=== PATIENT | female | born 1980 | race Caucasian/White ===

== ENCOUNTER 2017-08-24 13:32 | Emergency (ER) | payer MEDICAID ==
[~2017-08-24] VITALS: Ht 160 cm; Wt 73.5 kg
[~2017-08-24 13:32] MED LIST: PNV1TAB.5 PO
[2017-08-24 13:34] VITALS: BP 124/76
== END 2017-08-24 14:55 | disposition home or self-care (01) ==
LOC: ED 14:49
DX: J32.1 Chronic frontal sinusitis (principal); J20.9 Acute bronchitis, unspecified; E11.9 Type 2 diabetes mellitus without complications; Z88.0 Allergy status to penicillin
CPT/HCPCS: 99283

== ENCOUNTER 2017-09-26 19:03 | Outpatient (CLI) | payer MEDICAID ==
[~2017-09-26] VITALS: Ht 160 cm; Wt 74.1 kg
[2017-09-26 19:31] VITALS: BP 113/66
== END 2017-09-26 21:15 | disposition home or self-care (01) ==
LOC: LDOP 19:03
PROVIDERS: ATTEND Obstetrics & Gynecology
DX: O09.523 Supervision of elderly multigravida, third trimester (principal); O26.893 Other specified pregnancy related conditions, third trimester; O99.333 Smoking (tobacco) complicating pregnancy, third trimester; R10.9 Unspecified abdominal pain; F17.200 Nicotine dependence, unspecified, uncomplicated; Z3A.28 28 weeks gestation of pregnancy
CPT/HCPCS: 59025; 76815; 81003; 87086; 99201; G0463

== ENCOUNTER 2017-11-12 11:59 | Observation (INO) | payer MEDICAID ==
[~2017-11-12] VITALS: Ht 160 cm; Wt 80.9 kg
[2017-11-12 12:59] VITALS: BP 107/65
[2017-11-12] MEDS ORDERED: ONDANSETRON 2MG/ML, 2ML ONE (13:18)
[2017-11-12] MEDS ORDERED: LACTATED RINGERS 1,000 ML IVBOLUS ONE (13:30)
[2017-11-12] MEDS ORDERED: ONDANSETRON 2MG/ML, 2ML IVPush PRN (13:30)
[2017-11-12 13:44] LABS: MICROSCOPIC INDICATED
[2017-11-12] MEDS ORDERED: LACTATED RINGERS 1,000 ML IV SCH (14:30)
[2017-11-12] MEDS ORDERED: ONDA4TAB10 PO (15:01)
== END 2017-11-12 16:00 | disposition home or self-care (01) ==
LOC: LDOP 11:59 → 2NW 14:37 → INTOOBSV 14:37 → LDIP 15:18
PROVIDERS: ADMIT Obstetrics & Gynecology; ATTEND Obstetrics & Gynecology
DX: O26.892 Other specified pregnancy related conditions, second trimester (principal); R19.7 Diarrhea, unspecified; Z3A.35 35 weeks gestation of pregnancy
CPT/HCPCS: 81001; 87086; 96374; G0378; J2405; J7120; 96361

== ENCOUNTER 2017-12-12 05:35 | Inpatient (IN) | payer MEDICAID ==
[~2017-12-12] VITALS: Ht 160 cm; Wt 81.8 kg
[~2017-12-12 05:35] MED LIST changes: +ONDA4TAB10 PO
[2017-12-12] MEDS ORDERED: LACTATED RINGERS 1,000 ML IV SCH ×3 (05:37→07:38)
[2017-12-12] MEDS ORDERED: OXYTOCIN 30U/ 0.9% NaCL 500ML 500 ML IV SCH (05:37)
[2017-12-12 05:56] VITALS: BP 120/77
[2017-12-12] MEDS ORDERED: LACTATED RINGERS 1,000 ML IVBOLUS ONE (06:00)
[2017-12-12] MEDS ORDERED: SODIUM CITRATE/CITRIC ACID 30 ML UDC PO ONE (06:00)
[2017-12-12] MEDS ORDERED: METOCLOPRAMIDE 5 MG/ML, 2ML IV ONE (06:00)
[2017-12-12] MEDS ORDERED: PNEUMOCOCCAL 23 VACCINE IM-VACC ONE (06:30)
[2017-12-12] MEDS ORDERED: FLU VACC QS2017-18 (36MOS+) UP/PF 0.5 ML IM-VACC ONE ×2 (06:30→15:15)
[2017-12-12] MEDS ORDERED: METOCLOPRAMIDE 5 MG/ML, 2ML ONE (06:41)
[2017-12-12] MEDS ORDERED: SODIUM CITRATE/CITRIC ACID 30 ML UDC ONE (06:41)
[2017-12-12 06:44] LABS: BASOPHILS # (AUTO) 0.04 x10^3/uL (0-0.1); BASOPHILS % (AUTO) 0 % (0-1); EOSINOPHILS # (AUTO) 0.21 x10^3/uL (0-0.4); EOSINOPHILS % (AUTO) 2 % (1-7); LYMPHOCYTES # (AUTO) 2.87 x10^3/uL (1-3.4); LYMPHOCYTES % (AUTO) 24 % (22-44); MD NO; MEAN CORPUSCULAR HEMOGLOBIN 31.7 pg (27.0-34.8); MEAN CORPUSCULAR HGB CONC 33.6 g/dL (32.4-35.8); MEAN CORPUSCULAR VOLUME 94.3 fL (80-100); MEAN PLATELET VOLUME 8.1 fL (7.4-10.4); MONOCYTES % (AUTO) 6 % (2-9); NEUTROPHILS # (AUTO) 8.08 x10^3/uL (1.8-6.8); NEUTROPHILS % (AUTO) 68 % (42-75); PLATELET COUNT 144 x10^3/uL (130-400); RED BLOOD COUNT 3.43 x10^6/uL (3.82-5.3); RED CELL DISTRIBUTION WIDTH 14.5 % (9.6-15.2)
[2017-12-12] MEDS ORDERED: KETOROLAC 30 MG/1 ML ONE (07:17)
[2017-12-12] MEDS ORDERED: CEFAZOLIN 1,000 MG ONE (07:17)
[2017-12-12] MEDS ORDERED: OXYTOCIN 10 UNITS/ML, 1ML ONE (07:17)
[2017-12-12] MEDS ORDERED: EPHEDRINE 50 MG/ML, 1ML ONE (07:17)
[2017-12-12] MEDS ORDERED: PHENYLEPHRINE 10 MG/ML ONE (07:17)
[2017-12-12] MEDS ORDERED: ONDANSETRON 2MG/ML, 2ML ONE (07:17)
[2017-12-12] MEDS ORDERED: DEXAMETHASONE 4 MG/ML, 1ML ONE (07:17)
[2017-12-12] MEDS ORDERED: FENTANYL PF 100 MCG/2ML ONE (07:18)
[2017-12-12] MEDS ORDERED: NEWBORN KIT ONE (07:27)
[2017-12-12] MEDS ORDERED: MIDAZOLAM 1 MG/ML, 2ML IV PRN (07:30)
[2017-12-12] MEDS ORDERED: MEPERIDINE/PF 25MG/0.5ML IVPush PRN (07:30)
[2017-12-12] MEDS ORDERED: hydrALAzine 20 MG/ML, 1ML IV PRN (07:30)
[2017-12-12] MEDS ORDERED: HYDROcodone/APAP 7.5-325MG/15ML UDC PO PRN (07:30)
[2017-12-12] MEDS ORDERED: LABETALOL 5MG/ML, 20ML IV PRN (07:30)
[2017-12-12] MEDS ORDERED: EPHEDRINE 50 MG/ML, 1ML IVPush PRN (07:30)
[2017-12-12] MEDS ORDERED: FENTANYL PF 100 MCG/2ML IV PRN (07:30)
[2017-12-12] MEDS ORDERED: PROMETHAZINE 25 MG/ML, 1ML IV PRN (07:30)
[2017-12-12] MEDS ORDERED: OXYcodone 5 MG/5 ML ORAL.SOL UDC PO PRN (07:30)
[2017-12-12] MEDS ORDERED: ONDANSETRON 2MG/ML, 2ML IVPush PRN (07:30)
[2017-12-12] MEDS ORDERED: ALBUTEROL SULFATE 2.5 MG/3 ML NPPB PRN (07:30)
[2017-12-12] MEDS ORDERED: HYDROmorphone 1 MG/ML, 1ML IV PRN (07:30)
[2017-12-12] MEDS: OXYTOCIN 30U/ 0.9% NaCL 500ML 500 ML IV SCH ×2 (07:38→17:38)
[2017-12-12] MEDS ORDERED: IBUPROFEN 600 MG TABLET PO PRN (08:00)
[2017-12-12] MEDS ORDERED: MISOPROSTOL 200 MCG TABLET PR PRN (08:00)
[2017-12-12] MEDS ORDERED: ACETAMINOPHEN 325 MG TABLET PO PRN ×2 (08:00)
[2017-12-12] MEDS ORDERED: OXYcodone/APAP 5/325MG TABLET PO PRN ×2 (08:00)
[2017-12-12] MEDS ORDERED: CALCIUM CARBONATE 500 MG TAB.CHEW PO PRN (08:00)
[2017-12-12] MEDS ORDERED: ONDANSETRON 2MG/ML, 2ML IV PRN (08:00)
[2017-12-12] MEDS ORDERED: morphine SULFATE 10 MG/ML, 1ML IVPush PRN ×2 (08:00)
[2017-12-12] MEDS: KETOROLAC 30 MG/1 ML IV SCH ×3 (08:15→20:16)
[2017-12-12] MEDS ORDERED: OXYTOCIN 30U/ 0.9% NaCL 500ML 500 ML ONE (08:33)
[2017-12-12] MEDS: LACTATED RINGERS 1,000 ML IV SCH ×2 (08:38→17:38)
[2017-12-12] MEDS: PRENATAL VIT/IRON/FA 1 EACH TABLET PO SCH (09:00)
[2017-12-12 11:10] VITALS: BP 95/52
[2017-12-12 15:25] VITALS: BP 97/53
[2017-12-12 16:42] LABS: BASOPHILS # (AUTO) 0.05 x10^3/uL (0-0.1); BASOPHILS % (AUTO) 0 % (0-1); EOSINOPHILS # (AUTO) 0.02 x10^3/uL (0-0.4); EOSINOPHILS % (AUTO) 0 % (1-7); LYMPHOCYTES # (AUTO) 1.87 x10^3/uL (1-3.4); LYMPHOCYTES % (AUTO) 16 % (22-44); MD NO; MEAN CORPUSCULAR HEMOGLOBIN 31.9 pg (27.0-34.8); MEAN CORPUSCULAR HGB CONC 33.9 g/dL (32.4-35.8); MEAN CORPUSCULAR VOLUME 94.1 fL (80-100); MEAN PLATELET VOLUME 7.8 fL (7.4-10.4); MONOCYTES # (AUTO) 0.42 x10^3/uL (0.2-0.8); MONOCYTES % (AUTO) 4 % (2-9); NEUTROPHILS # (AUTO) 9.58 x10^3/uL (1.8-6.8); NEUTROPHILS % (AUTO) 80 % (42-75); PLATELET COUNT 121 x10^3/uL (130-400); RED CELL DISTRIBUTION WIDTH 14.4 % (9.6-15.2)
[2017-12-12 19:30] VITALS: BP 100/63
[2017-12-12] MEDS: DOCUSATE 100 MG CAPSULE PO PRN (20:16)
[2017-12-12 23:44] VITALS: BP 106/68
[2017-12-13] MEDS: KETOROLAC 30 MG/1 ML IV SCH ×4 (01:39→19:59)
[2017-12-13] MEDS: OXYTOCIN 30U/ 0.9% NaCL 500ML 500 ML IV SCH ×3 (03:38→23:38)
[2017-12-13] MEDS: LACTATED RINGERS 1,000 ML IV SCH ×3 (03:38→23:13)
[2017-12-13 07:25] VITALS: BP 87/47
[2017-12-13] MEDS: PRENATAL VIT/IRON/FA 1 EACH TABLET PO SCH (07:32)
[2017-12-13] MEDS: DOCUSATE 100 MG CAPSULE PO PRN (07:32)
[2017-12-13 20:10] VITALS: BP 102/68
[2017-12-14] MEDS: KETOROLAC 30 MG/1 ML IV SCH (01:54)
[2017-12-14 07:30] VITALS: BP 108/65
[2017-12-14] MEDS: DOCUSATE 100 MG CAPSULE PO PRN (08:54)
[2017-12-14] MEDS: PRENATAL VIT/IRON/FA 1 EACH TABLET PO SCH (09:00)
[2017-12-14] MEDS: LACTATED RINGERS 1,000 ML IV SCH (09:38)
[2017-12-14] MEDS: OXYTOCIN 30U/ 0.9% NaCL 500ML 500 ML IV SCH (09:38)
[2017-12-14] MEDS ORDERED: OXYC-302 PO (12:00)
[2017-12-14] MEDS ORDERED: IBUP-1222 PO (12:01)
== END 2017-12-14 13:04 | disposition home or self-care (01) | DRG 766 ==
LOC: LDIP 05:35 → 2NW 11:06
PROVIDERS: ADMIT Obstetrics & Gynecology; ATTEND Obstetrics & Gynecology
PROC: 10D00Z1 Extraction of Products of Conception, Low, Open Approach (ICD-10-PCS; principal; 2017-12-12)
PROC: 0UB70ZZ Excision of Bilateral Fallopian Tubes, Open Approach (ICD-10-PCS; 2017-12-12)
DX: O34.211 Maternal care for low transverse scar from previous cesarean delivery (principal); O16.4 Unspecified maternal hypertension, complicating childbirth; F17.210 Nicotine dependence, cigarettes, uncomplicated; O99.334 Smoking (tobacco) complicating childbirth; Z37.0 Single live birth; Z3A.39 39 weeks gestation of pregnancy; Z30.2 Encounter for sterilization; Z88.0 Allergy status to penicillin; Z90.49 Acquired absence of other specified parts of digestive tract
CPT/HCPCS: 36415; 85025; 86850; 86900; 88302; 90686; J0690; J1100; J1885; J2405; J3010; J2370; J2590; J2765; J7120